=== PATIENT | male | born 1990 | race Caucasian/White ===

== ENCOUNTER 2020-03-19 10:03 | Emergency (ER) | payer BC, OTHER ==
[~2020-03-19] VITALS: Ht 167.6 cm; Wt 68.0 kg
[2020-03-19] MEDS ORDERED: SODIUM CHLORIDE 0.9% 1,000 ML IVB ONE (10:19)
[2020-03-19] MEDS ORDERED: PANTOPRAZOLE 40 MG/10 ML VIAL INJ IV STA (10:19)
[2020-03-19] MEDS ORDERED: ONDANSETRON HCL 4 MG/2 ML VIAL IV ONE (10:30)
[2020-03-19] MEDS ORDERED: MORPHINE SULFATE 4 MG/ML SYR/VIAL IV ONE (10:30)
[2020-03-19 10:53] VITALS: BP 110/72
[2020-03-19 11:41] LABS: Basophils # (auto) 0 10 ^3/uL (0-0.2); Basophils % (auto) 0.2 % (0.0-2.0); Eosinophils # (auto) 0.1 10 ^3/uL (0-0.8); Eosinophils % (auto) 0.7 % (0.0-7.0); Hematocrit 41.6 % (41.0-53.0); Hemoglobin 14.4 g/dL (13.5-17.5); Lymphocytes # (auto) 1.9 10 ^3/uL (0.4-5.4); Lymphocytes % (auto) 24.6 % (10.0-50.0); Mean Corpuscular Hemoglobin 31.8 pg (28.0-32.0); Mean Corpuscular Hgb Conc. 34.7 g/dL (32.0-36.0); Mean Corpuscular Volume 91.8 fL (80.0-100.0); Monocytes # (auto) 0.9 10 ^3/uL (0-1.3); Monocytes % (auto) 11.9 % (0.0-12.0); Neutrophils # (auto) 4.8 10 ^3/uL (1.6-8.6); Neutrophils % (auto) 62.6 % (37.0-80.0); Nucleated Red Blood Cells % 0.2 %; Platelet Count (auto) 223 10^3/uL (140-450); Red Blood Cells 4.54 10^6/uL (4.5-5.90); Red Cell Distribution Width 13.2 % (11.8-14.3); White Blood Cell 7.7 10^3/uL (4.4-10.8)
[2020-03-19 11:50] LABS: Chloride 99 mmol/L (98-107); Potassium 3.8 mmol/L (3.5-5.1); Sodium 133 mmol/L (136-145)
[2020-03-19 11:59] LABS: Alanine Aminotransferase 35 U/L (16-61); Albumin 3.1 g/dL (3.4-5.0); Alkaline Phosphatase 77 U/L (45-117); Anion Gap 7 (5-15); Aspartate Aminotransferase 22 U/L (15-37); BUN/Creatinine Ratio 10.7; Bilirubin, Total 0.5 mg/dL (0.2-1.0); Blood Urea Nitrogen 8 mg/dL (7-18); Calcium 8.4 mg/dL (8.5-10.1); Carbon Dioxide 27 mmol/L (21-32); GFR African American 157 mL/min; GFR Non-African American 130 mL/min; Glucose 99 mg/dL (74-106); Lipase 173 U/L (73-393); Total Protein 7.4 g/dL (6.4-8.2)
[2020-03-19 12:01] LABS: Urine Bacteria NONE SEEN /hpf (None Seen); Urine Blood Negative /uL (Negative); Urine Mucus FEW (None Seen); Urine Specific Gravity 1.035 (1.001-1.035); Urine WBC 2 /hpf (0 - 3)
[2020-03-19 12:15] LABS: Amphetamine Screen, Urine NEGATIVE (NEGATIVE); Barbiturate Scree,Urine NEGATIVE (NEGATIVE); Benzodiazephine Screen, Urine NEGATIVE (NEGATIVE); Cannabinoid Screen, Urine NEGATIVE (NEGATIVE); Cocaine Screen, Urine NEGATIVE (NEGATIVE); Opiate Scree,Urine NEGATIVE (NEGATIVE); Phencyclidine Screen, Urine NEGATIVE (NEGATIVE)
== END 2020-03-19 12:52 | disposition home or self-care (01) ==
LOC: ER 10:03
DX: K29.00 Acute gastritis without bleeding (principal); K82.4 Cholesterolosis of gallbladder; F17.210 Nicotine dependence, cigarettes, uncomplicated; Z88.0 Allergy status to penicillin
CPT/HCPCS: 36415; 76705; 80053; 80307; 81001; 83690; 84484; 85025; 96361; 96374; 96375; 99285; C9113; J2270; J2405; 93005

== ENCOUNTER 2020-06-04 13:32 | Emergency (ER) | payer BC ==
[~2020-06-04] VITALS: Ht 167.6 cm; Wt 68.0 kg
[2020-06-04] MEDS ORDERED: ACETAMINOPHEN/CODEINE#3 (300/30mg) TAB PO ONE (16:15)
[2020-06-04 17:30] VITALS: BP 107/62
== END 2020-06-04 17:42 | disposition home or self-care (01) ==
LOC: ER 13:32
DX: M25.462 Effusion, left knee (principal); F17.210 Nicotine dependence, cigarettes, uncomplicated; Z88.0 Allergy status to penicillin; V29.9XXA Motorcycle rider (driver) (passenger) injured in unspecified traffic accident, initial encounter; Y93.89 Activity, other specified; Y92.89 Other specified places as the place of occurrence of the external cause; Y99.8 Other external cause status
CPT/HCPCS: 29505; 73562

== ENCOUNTER 2022-04-17 11:09 | Emergency (ER) | payer SELFPAY ==
[~2022-04-17] VITALS: Ht 167.6 cm; Wt 72.6 kg
[2022-04-17 11:50] VITALS: BP 129/78
[2022-04-17] MEDS ORDERED: cefTRIAXone SOD 1,000 MG VL IM ONE (12:00)
[2022-04-17] MEDS ORDERED: LIDOCAINE VISCOUS 2% 15ML UD PO ONE (12:00)
[2022-04-17] MEDS ORDERED: BENZ20SO3 MT (12:05)
== END 2022-04-17 12:19 | disposition home or self-care (01) ==
LOC: ER 11:09
DX: K08.89 Other specified disorders of teeth and supporting structures (principal); K04.7 Periapical abscess without sinus; F17.210 Nicotine dependence, cigarettes, uncomplicated; F12.10 Cannabis abuse, uncomplicated; Z88.0 Allergy status to penicillin
CPT/HCPCS: 96372; 99283; J0696